=== PATIENT | female | born 1980 ===

== ENCOUNTER 2016-11-12 12:10 | Emergency (ER) | payer OTHER ==
[2016-11-12 12:16] VITALS: TEMP 98.3
--- NOTE | 2016-11-12 13:02 | C.PDOC ---
History Of Present Illness 36-year-old female, presents to the emergency department with complaints of abdominal pain. Patient states she has been experiencing left-lower quadrant abdominal pain that started two days ago. Pain is persistent in nature, and progressively worsening. States pain is unrelieved by naproxen and two doses of ABX. Patient notes she was diagnosed with diverticulitis, and has minor flare- ups over the years, that are usually relieved with abx. Denies nausea/vomiting, fevers, chills, shortness of breath or chest pain. No other complaints at this time. Patients last (non-bloody) bowel movement 2 days ago. Chief Complaint (Nursing): High Blood Pressure History Per: Patient History/Exam Limitations: no limitations Onset/Duration Of Symptoms: Days Current Symptoms Are (Timing): Still Present Past Medical History Reviewed: Historical Data, Nursing Documentation, Vital Signs Vital Signs: Last Vital Signs Temp 98.3 F 11/12/16 12:15 Pulse 75 11/12/16 13:35 Resp 16 11/12/16 13:35 BP 140/100 H 11/12/16 13:35 Pulse Ox 100 11/12/16 19:43 - Medical History PMH: HTN, Hypothyroidism Surgical History: Cholecystectomy Family History: States: No Known Family Hx - Social History Hx Tobacco Use: Yes Hx Alcohol Use: No Hx Substance Use: Yes - Immunization History Hx Tetanus Toxoid Vaccination: No Hx Influenza Vaccination: No Hx Pneumococcal Vaccination: No Review Of Systems Except As Marked, All Systems Reviewed And Found Negative. Constitutional: Negative for: Fever, Chills Cardiovascular: Negative for: Chest Pain, Palpitations Respiratory: Negative for: Shortness of Breath Gastrointestinal: Positive for: Abdominal Pain. Negative for: Nausea, Vomiting Skin: Negative for: Rash Neurological: Negative for: Weakness, Numbness, Headache, Dizziness Physical Exam - Physical Exam Appears: Non-toxic, No Acute Distress Skin: Warm, Dry, No Rash Head: Atraumatic, Normacephalic Eye(s): bilateral: Normal Inspection Nose: Normal Oral Mucosa: Moist Lips: Normal Appearing Neck: Normal ROM Cardiovascular: Rhythm Regular, No Murmur Respiratory: Normal Breath Sounds, No Accessory Muscle Use Gastrointestinal/Abdominal: Soft, Tenderness (LLQ) Extremity: Normal ROM Neurological/Psych: Oriented x3 ED Course And Treatment O2 Sat by Pulse Oximetry: 100 Disposition - Disposition Referrals: [facility] at [facility] [Outside] Disposition: HOME/ ROUTINE Disposition Time: 13:11 Additional Instructions: Make an apt at the clinic to follow up your BP Prescriptions: amLODIPine [Norvasc] 1 tab PO DAILY #30 tab Instructions: Hypertension (ED) - Clinical Impression Clinical Impression: Headache, BP (high blood pressure) - PA / MARKET CONSULTANT / Resident Statement MD/DO has reviewed & agrees with the documentation as recorded. - Scribe Statement The provider has reviewed the documentation as recorded by the Scribannie Hartmann All medical record entries made by the Martinibannie were at my direction and personally dictated by me. I have reviewed the chart and agree that the record accurately reflects my personal performance of the history, physical exam, medical decision making, and the department course for this patient. I have also personally directed, reviewed, and agree with the discharge instructions and disposition.
[2016-11-12 13:38] VITALS: BP 140/100; PULSE 75; RESP 16
[2016-11-12 13:59] VITALS: O2SAT 100
--- NOTE | 2016-11-12 19:44 | C.PDOC ---
History Of Present Illness 36-year-old female, presents to the emergency department with complaints of 2- day duration of intermittent headache, that is described as a sharp electric- shock like pain to the right side of her head. Patient states she is worried because she stopped taking her blood pressure meds. Patient notes that she checked her pressure and it was high. No headache at present. No shortness of breath or chest pain. Patient notes that she stopped taking meds due to palpitations, but did not mention this to her doctor. No other complaints at this time. Time Seen by Provider: 11/12/16 13:03 Chief Complaint (Nursing): High Blood Pressure History Per: Patient History/Exam Limitations: no limitations Past Medical History Reviewed: Historical Data, Nursing Documentation, Vital Signs Vital Signs: Last Vital Signs Temp 98.3 F 11/12/16 12:15 Pulse 75 11/12/16 13:35 Resp 16 11/12/16 13:35 BP 140/100 H 11/12/16 13:35 Pulse Ox 100 11/12/16 19:44 - Medical History PMH: HTN, Hypothyroidism Surgical History: Cholecystectomy Family History: States: No Known Family Hx - Social History Hx Tobacco Use: Yes Hx Alcohol Use: No Hx Substance Use: Yes - Immunization History Hx Tetanus Toxoid Vaccination: No Hx Influenza Vaccination: No Hx Pneumococcal Vaccination: No Review Of Systems Except As Marked, All Systems Reviewed And Found Negative. Constitutional: Negative for: Fever, Chills Cardiovascular: Negative for: Chest Pain Respiratory: Negative for: Shortness of Breath Gastrointestinal: Negative for: Nausea, Vomiting Neurological: Positive for: Headache. Negative for: Weakness, Numbness, Dizziness Physical Exam - Physical Exam Appears: Non-toxic, No Acute Distress Skin: Warm, Dry, No Rash Head: Atraumatic, Normacephalic Eye(s): bilateral: Normal Inspection, PERRL, EOMI Nose: Normal Oral Mucosa: Moist Neck: Normal ROM Cardiovascular: Rhythm Regular, No Murmur Respiratory: Normal Breath Sounds Gastrointestinal/Abdominal: Soft, No Tenderness Extremity: Normal ROM Neurological/Psych: Oriented x3, Normal Speech ED Course And Treatment O2 Sat by Pulse Oximetry: 100 Pulse Ox Interpretation: Normal Disposition - Disposition Referrals: [facility] [Outside] Disposition: HOME/ ROUTINE Disposition Time: 13:11 Condition: GOOD Additional Instructions: Make an apt at the clinic to follow up your BP Prescriptions: amLODIPine [Norvasc] 1 tab PO DAILY #30 tab Instructions: Hypertension (ED) - Clinical Impression Clinical Impression: Headache, BP (high blood pressure) - Scribe Statement The provider has reviewed the documentation as recorded by the Jacqueline Hartmann Provider Attestation: All medical record entries made by the Martinibannie were at my direction and personally dictated by me. I have reviewed the chart and agree that the record accurately reflects my personal performance of the history, physical exam, medical decision making, and the department course for this patient. I have also personally directed, reviewed, and agree with the discharge instructions and disposition.
== END 2016-11-12 13:37 | disposition home or self-care (01) ==
LOC: C.ER 12:10
DX: I10 Essential (primary) hypertension (principal); Z72.0 Tobacco use; R51 Headache